=== PATIENT | male | born 1955 | race Caucasian/White ===

== ENCOUNTER 2018-01-09 23:33 | Emergency (ER) | payer BC, SELFPAY ==
[2018-01-10 01:02] LABS: #Eosinphils 0.3 thou/uL (0.0-0.7); #Lymphocytes 1.2 thou/uL (1.20-3.40); #Neutrophils 12.2 thou/uL (1.40-6.50); %Basophils 0.3 % (0.0-1.0); %Eosinophils 2.2 % (0.0-10.0); %Lymphocytes 8.2 % (21.0-51.0); %Monocytes 6.7 % (0.0-10.0); %Neutrophils 82.6 % (42.0-75.0); Hemoglobin 13.4 g/dL (14.0-18.0); Mean Corpuscular HGB CONC 36.9 g/dL (32.0-36.0); Mean Corpuscular Hemoglobin 32.9 pg (27.0-31.0); Mean Corpuscular Volume 89.1 fL (78.0-98.0); Mean Platelet Volume 6.8 fL (7.4-10.4); Platelet Count 223 thou/uL (130-400); RBC Distribution Width 12.2 % (11.5-14.5); Red Blood Cell (RBC) Count 4.07 mill/uL (4.70-6.10); White Blood Cell (WBC) Count 14.7 thou/uL (4.8-10.8)
[2018-01-10 01:13] LABS: ALT (SGPT) 23 U/L (8-55); AST (SGOT) 21 U/L (5-34); Albumin 4.2 g/dL (3.4-4.8); Alkaline Phosphatase 129 U/L (40-150); Anion Gap 17 mmol/L (10-20); BUN (Urea Nitrogen) 18 mg/dL (8.4-25.7); Bilirubin, Total 0.3 mg/dL (0.2-1.2); CK (CPK) 44 U/L (30-200); Calc. Creatinine Clearance 0 mL/min (70-130); Calcium 8.9 mg/dL (7.8-10.44); Carbon Dioxide 20 mmol/L (23-31); Chloride 105 mmol/L (98-107); Estimated GFR-MDRD 65; Globulin 2.7 g/dL (2.4-3.5); Glucose 164 mg/dL (80-115); Potassium 4.1 mmol/L (3.5-5.1); Protein, Total 6.9 g/dL (5.8-8.1); Sodium 138 mmol/L (136-145)
[2018-01-10 01:17] LABS: CKMB 1.1 ng/mL (0-6.6); Troponin I Less than 0.010 ng/mL (< 0.028)
--- NOTE | 2018-01-10 10:05 | RAD ---
CHEST 1 VIEW: HISTORY: A 62-year-old male with history of dyspnea. COMPARISON: 07/21/15. FINDINGS: Heart size is within normal limits. The lungs are clear. No pneumonia, edema, or pleural effusion. IMPRESSION: No acute intrathoracic disease. POS: [facility]
== END 2018-01-10 03:25 | disposition home or self-care (01) ==
LOC: ERS 23:33
DX: R06.02 Shortness of breath (principal); E11.9 Type 2 diabetes mellitus without complications; I10 Essential (primary) hypertension; E78.5 Hyperlipidemia, unspecified; K21.9 Gastro-esophageal reflux disease without esophagitis; F17.220 Nicotine dependence, chewing tobacco, uncomplicated; F41.9 Anxiety disorder, unspecified; Z79.899 Other long term (current) drug therapy; Z79.84 Long term (current) use of oral hypoglycemic drugs
CPT/HCPCS: 36415; 71045; 80053; 82553; 83880; 84484; 85025

== ENCOUNTER 2020-08-14 08:28 | Outpatient (CLI) | payer MEDICARE | END 2020-08-14 08:29 | disposition home or self-care (01) | LOC: BICULT 08:28 | PROVIDERS: ATTEND Internal Medicine Gastroenterology | DX: K21.9 Gastro-esophageal reflux disease without esophagitis (principal); D64.9 Anemia, unspecified; K83.1 Obstruction of bile duct; E66.9 Obesity, unspecified; Z86.010 Personal history of colon polyps; Z80.0 Family history of malignant neoplasm of digestive organs | CPT/HCPCS: 76705 ==

== ENCOUNTER 2020-10-11 11:06 | Outpatient (CLI) | payer MEDICARE | END 2020-10-11 11:07 | disposition home or self-care (01) | LOC: BICRAD 11:06 | PROVIDERS: ATTEND Nurse Practitioner Family | DX: R05 Cough (principal); R91.8 Other nonspecific abnormal finding of lung field | CPT/HCPCS: 71046 ==

== ENCOUNTER 2021-01-19 08:22 | Inpatient (IN) | payer MEDICARE ==
[2021-01-19 09:51] LABS: #Lymphocytes 0.8 thou/uL (1.20-3.40); #Monocytes 0.7 thou/uL (0.11-0.59); #Neutrophils 3.8 thou/uL (1.40-6.50); %Basophils 0.3 % (0.0-1.0); %Eosinophils 0.3 % (0.0-10.0); %Lymphocytes 15.3 % (21.0-51.0); %Monocytes 12.8 % (0.0-10.0); %Neutrophils 71.3 % (42.0-75.0); Hemoglobin 13.3 g/dL (14.0-18.0); Mean Corpuscular HGB CONC 32.8 g/dL (32.0-36.0); Mean Corpuscular Hemoglobin 29.7 pg (27.0-31.0); Mean Corpuscular Volume 90.7 fL (78.0-98.0); Mean Platelet Volume 7.9 fL (7.4-10.4); Platelet Count 155 thou/uL (130-400); RBC Distribution Width 12.9 % (11.5-14.5); Red Blood Cell (RBC) Count 4.47 mill/uL (4.70-6.10); White Blood Cell (WBC) Count 5.3 thou/uL (4.8-10.8)
[2021-01-19 10:08] LABS: ALT (SGPT) 16 U/L (8-55); AST (SGOT) 24 U/L (5-34); Albumin 3.4 g/dL (3.4-4.8); Alkaline Phosphatase 134 U/L (40-110); Anion Gap 14 mmol/L (10-20); BUN (Urea Nitrogen) 21 mg/dL (8.4-25.7); Bilirubin, Total 0.4 mg/dL (0.2-1.2); Calc. Creatinine Clearance 0 mL/min (70-130); Calcium 8.1 mg/dL (7.8-10.44); Carbon Dioxide 22 mmol/L (23-31); Chloride 106 mmol/L (98-107); Globulin 2.7 g/dL (2.4-3.5); Glucose 192 mg/dL (80-115); Potassium 4.9 mmol/L (3.5-5.1); Protein, Total 6.1 g/dL (5.8-8.1); Sodium 137 mmol/L (136-145)
[2021-01-19] MEDS ORDERED: Aspirin 325 MG TAB ONE (10:49)
[2021-01-19] MEDS ORDERED: Diltiazem 125 MG/25 ML ONE (11:46)
[2021-01-19] MEDS ORDERED: Ibuprofen 200 MG TAB PO PRN (12:28)
[2021-01-19] MEDS ORDERED: Ondansetron PF 4 MG/2 ML Vial IVP PRN ×2 (12:29→17:55)
[2021-01-19] MEDS ORDERED: Dextrose 50% Abboject 50 ML SYRINGE IVP PRN (12:30)
[2021-01-19] MEDS ORDERED: Dextrose 5% in Water 1,000 ML IV PRN (12:30)
[2021-01-19 12:43] LABS: SARS-CoV-2 NAA Rapid Test DETECTED (NotDetected)
[2021-01-19] MEDS ORDERED: Diltiazem HCl 125 MG, Admixture Fee 1 EACH in Sodium Chloride 0.9% 100 ML IVPB SCH (12:45)
[2021-01-19] MEDS ORDERED: Acetaminophen 500 MG TAB ONE (13:36)
[2021-01-19] MEDS ORDERED: Iopamidol-370 76% 500 ML 1 ML ONE (15:20)
[2021-01-19] MEDS: Ergocalciferol 1.25 MG(50,000 UNITS) CAP PO SCH (17:35)
[2021-01-19] MEDS: Sodium Chloride 0.9% 1,000 ML IV SCH (17:35)
[2021-01-19] MEDS: Enoxaparin Sodium 100 MG/ML SYRINGE SC SCH (21:48)
[2021-01-19] MEDS: Lisinopril 20 MG TAB PO SCH (21:48)
[2021-01-20] MEDS: traMADol HCl 50 MG TAB PO PRN ×2 (03:06→08:15)
[2021-01-20] MEDS: Sodium Chloride 0.9% 1,000 ML IV SCH ×2 (04:22→08:07)
[2021-01-20 05:36] LABS: #Lymphocytes 0.7 thou/uL (1.20-3.40); #Monocytes 0.6 thou/uL (0.11-0.59); #Neutrophils 2.8 thou/uL (1.40-6.50); %Basophils 0.1 % (0.0-1.0); %Eosinophils 0.6 % (0.0-10.0); %Lymphocytes 17.4 % (21.0-51.0); %Monocytes 14.9 % (0.0-10.0); Hemoglobin 12.5 g/dL (14.0-18.0); Mean Corpuscular HGB CONC 32.1 g/dL (32.0-36.0); Mean Corpuscular Volume 90.4 fL (78.0-98.0); Mean Platelet Volume 7.8 fL (7.4-10.4); Platelet Count 160 thou/uL (130-400); RBC Distribution Width 12.9 % (11.5-14.5); White Blood Cell (WBC) Count 4.2 thou/uL (4.8-10.8)
[2021-01-20 06:02] LABS: Anion Gap 16 mmol/L (10-20); BUN (Urea Nitrogen) 13 mg/dL (8.4-25.7); CRP (Inflammatory) 16.55 mg/dL (= or < 0.5); Calc. Creatinine Clearance 131 mL/min (70-130); Calcium 7.9 mg/dL (7.8-10.44); Carbon Dioxide 18 mmol/L (23-31); Chloride 108 mmol/L (98-107); Glucose 134 mg/dL (80-115); Potassium 4.7 mmol/L (3.5-5.1); Sodium 137 mmol/L (136-145)
[2021-01-20] MEDS: Aspirin 325 MG TAB PO SCH (07:59)
[2021-01-20] MEDS: Lisinopril 20 MG TAB PO SCH ×2 (07:59→20:36)
[2021-01-20] MEDS: Colchicine 0.6 MG TAB PO SCH (07:59)
[2021-01-20] MEDS: Atenolol 50 MG TAB PO SCH (07:59)
[2021-01-20] MEDS: Zinc Sulfate 220 MG CAP PO SCH (07:59)
[2021-01-20] MEDS: Enoxaparin Sodium 100 MG/ML SYRINGE SC SCH ×2 (08:03→20:36)
[2021-01-20] MEDS ORDERED: Dexamethasone 4 mg/ml Vial SLOW IVP SCH (09:00)
[2021-01-20] MEDS ORDERED: CeleCOXIB 100 MG CAP PO SCH (09:30)
[2021-01-20] MEDS ORDERED: Sodium Chloride 0.9% 1,000 ML IV SCH (09:45)
[2021-01-20] MEDS: Cyclobenzaprine 10 MG TAB PO SCH ×3 (09:52→20:36)
[2021-01-20] MEDS: Amlodipine 10 MG TAB PO SCH (09:52)
[2021-01-20] MEDS: Azithromycin 500 MG in Sodium Chloride 0.9% 250 ML 250 ML IVPB SCH (09:57)
[2021-01-20] MEDS ORDERED: FLUoxetine HCl 20 MG CAP PO SCH (10:30)
[2021-01-20] MEDS ORDERED: Diltiazem HCl 125 MG, Admixture Fee 1 EACH in Sodium Chloride 0.9% 100 ML IVPB SCH ×2 (10:45→12:45)
[2021-01-20] MEDS: HYDROcodone/Acetaminophen 5/325 mg Tablet PO PRN ×2 (12:36→17:37)
[2021-01-20] MEDS: methylPREDNISolone Sod Succ 40 MG VIAL IVP SCH ×2 (12:37→17:30)
[2021-01-20] MEDS: Ergocalciferol 1.25 MG(50,000 UNITS) CAP PO SCH (12:37)
[2021-01-20] MEDS: Insulin Regular 300 UNITS/3 ML VIAL SC PRN ×3 (12:42→20:48)
[2021-01-20] MEDS ORDERED: Furosemide 20 MG/2 ML VIAL SLOW IVP SCH (18:30)
[2021-01-20] MEDS ORDERED: Spironolactone 25 MG TAB PO SCH (18:30)
[2021-01-20] MEDS: Atorvastatin Calcium 40 MG TAB PO SCH (20:36)
[2021-01-21] MEDS: methylPREDNISolone Sod Succ 40 MG VIAL IVP SCH ×5 (00:10→23:55)
[2021-01-21 05:47] LABS: #Lymphocytes 0.5 thou/uL (1.20-3.40); #Monocytes 0.3 thou/uL (0.11-0.59); #Neutrophils 3.1 thou/uL (1.40-6.50); %Eosinophils 0.2 % (0.0-10.0); %Lymphocytes 12.9 % (21.0-51.0); %Monocytes 7.2 % (0.0-10.0); %Neutrophils 79.8 % (42.0-75.0); Hemoglobin 12.5 g/dL (14.0-18.0); Mean Corpuscular HGB CONC 35.9 g/dL (32.0-36.0); Mean Corpuscular Hemoglobin 32.5 pg (27.0-31.0); Mean Corpuscular Volume 90.6 fL (78.0-98.0); Mean Platelet Volume 7.6 fL (7.4-10.4); Platelet Count 198 thou/uL (130-400); RBC Distribution Width 12.9 % (11.5-14.5); Red Blood Cell (RBC) Count 3.86 mill/uL (4.70-6.10); White Blood Cell (WBC) Count 3.8 thou/uL (4.8-10.8)
[2021-01-21] MEDS: Insulin Regular 300 UNITS/3 ML VIAL SC PRN ×4 (05:48→21:41)
[2021-01-21 06:06] LABS: Anion Gap 15 mmol/L (10-20); BUN (Urea Nitrogen) 17 mg/dL (8.4-25.7); CRP (Inflammatory) 12.34 mg/dL (= or < 0.5); Calc. Creatinine Clearance 119 mL/min (70-130); Calcium 8.3 mg/dL (7.8-10.44); Carbon Dioxide 23 mmol/L (23-31); Chloride 107 mmol/L (98-107); Glucose 242 mg/dL (80-115); Potassium 4.3 mmol/L (3.5-5.1); Sodium 141 mmol/L (136-145)
[2021-01-21] MEDS: Atenolol 50 MG TAB PO SCH (07:43)
[2021-01-21] MEDS: Colchicine 0.6 MG TAB PO SCH (07:44)
[2021-01-21] MEDS: Spironolactone 25 MG TAB PO SCH (07:44)
[2021-01-21] MEDS: Aspirin 325 MG TAB PO SCH (07:44)
[2021-01-21] MEDS: Cyclobenzaprine 10 MG TAB PO SCH ×3 (07:44→20:20)
[2021-01-21] MEDS: Amlodipine 10 MG TAB PO SCH (07:44)
[2021-01-21] MEDS: Lisinopril 20 MG TAB PO SCH ×2 (07:45→20:20)
[2021-01-21] MEDS: FLUoxetine HCl 20 MG CAP PO SCH (07:45)
[2021-01-21] MEDS: HYDROcodone/Acetaminophen 5/325 mg Tablet PO PRN ×4 (07:45→21:41)
[2021-01-21] MEDS: Zinc Sulfate 220 MG CAP PO SCH (07:45)
[2021-01-21] MEDS: Enoxaparin Sodium 100 MG/ML SYRINGE SC SCH ×2 (07:48→20:20)
[2021-01-21] MEDS ORDERED: CeleCOXIB 100 MG CAP PO SCH (09:00)
[2021-01-21] MEDS: Azithromycin 500 MG in Sodium Chloride 0.9% 250 ML 250 ML IVPB SCH (11:16)
[2021-01-21] MEDS ORDERED: REMDESIVIR 200 MG in Sodium Chloride 0.9% 250 ML 210 ML IV SCH (11:30)
[2021-01-21] MEDS ORDERED: Empagliflozin 10 MG TAB PO SCH (14:30)
[2021-01-21] MEDS: Nicotine 14 MG PATCH TOP SCH (16:00)
[2021-01-21] MEDS: Ergocalciferol 1.25 MG(50,000 UNITS) CAP PO SCH (16:00)
[2021-01-21] MEDS: Atorvastatin Calcium 40 MG TAB PO SCH (20:20)
[2021-01-22 05:32] LABS: #Lymphocytes 0.6 thou/uL (1.20-3.40); #Monocytes 0.7 thou/uL (0.11-0.59); #Neutrophils 10.2 thou/uL (1.40-6.50); %Basophils 0.2 % (0.0-1.0); %Lymphocytes 5.3 % (21.0-51.0); %Monocytes 5.9 % (0.0-10.0); %Neutrophils 88.6 % (42.0-75.0); Hemoglobin 12.3 g/dL (14.0-18.0); Mean Corpuscular HGB CONC 33.8 g/dL (32.0-36.0); Mean Corpuscular Hemoglobin 30.4 pg (27.0-31.0); Mean Corpuscular Volume 89.8 fL (78.0-98.0); Mean Platelet Volume 7.2 fL (7.4-10.4); Platelet Count 240 thou/uL (130-400); RBC Distribution Width 12.9 % (11.5-14.5); Red Blood Cell (RBC) Count 4.04 mill/uL (4.70-6.10); White Blood Cell (WBC) Count 11.6 thou/uL (4.8-10.8)
[2021-01-22 05:58] LABS: Anion Gap 17 mmol/L (10-20); BUN (Urea Nitrogen) 24 mg/dL (8.4-25.7); CRP (Inflammatory) 4.36 mg/dL (= or < 0.5); Calc. Creatinine Clearance 112 mL/min (70-130); Calcium 8.5 mg/dL (7.8-10.44); Carbon Dioxide 25 mmol/L (23-31); Chloride 107 mmol/L (98-107); Glucose 187 mg/dL (80-115); Potassium 4.8 mmol/L (3.5-5.1); Sodium 144 mmol/L (136-145)
[2021-01-22] MEDS: Insulin Regular 300 UNITS/3 ML VIAL SC PRN ×4 (06:05→20:47)
[2021-01-22] MEDS: methylPREDNISolone Sod Succ 40 MG VIAL IVP SCH ×3 (06:08→17:09)
[2021-01-22] MEDS: HYDROcodone/Acetaminophen 5/325 mg Tablet PO PRN ×5 (06:12→22:55)
[2021-01-22] MEDS: REMDESIVIR 100 MG in Sodium Chloride 0.9% 250 ML 230 ML IV SCH (08:52)
[2021-01-22] MEDS: Amlodipine 10 MG TAB PO SCH (08:52)
[2021-01-22] MEDS: Aspirin 325 MG TAB PO SCH (08:52)
[2021-01-22] MEDS: Cyclobenzaprine 10 MG TAB PO SCH ×3 (08:52→20:46)
[2021-01-22] MEDS: Lisinopril 20 MG TAB PO SCH ×2 (08:53→20:46)
[2021-01-22] MEDS: FLUoxetine HCl 20 MG CAP PO SCH (08:53)
[2021-01-22] MEDS: Atenolol 50 MG TAB PO SCH (08:53)
[2021-01-22] MEDS: Zinc Sulfate 220 MG CAP PO SCH (08:53)
[2021-01-22] MEDS: Enoxaparin Sodium 100 MG/ML SYRINGE SC SCH (08:54)
[2021-01-22] MEDS: Spironolactone 25 MG TAB PO SCH (08:54)
[2021-01-22] MEDS: Colchicine 0.6 MG TAB PO SCH (08:54)
[2021-01-22] MEDS: Azithromycin 500 MG in Sodium Chloride 0.9% 250 ML 250 ML IVPB SCH (10:14)
[2021-01-22] MEDS ORDERED: Furosemide 20 MG/2 ML VIAL SLOW IVP SCH (14:30)
[2021-01-22] MEDS: Ergocalciferol 1.25 MG(50,000 UNITS) CAP PO SCH (14:47)
[2021-01-22] MEDS: Nicotine 14 MG PATCH TOP SCH (14:47)
[2021-01-22] MEDS ORDERED: Guaifenesin DM 100-10/5 ML UDCUP PO PRN (16:22)
[2021-01-22] MEDS: Docusate 100 MG CAP PO SCH (20:45)
[2021-01-22] MEDS: Atorvastatin Calcium 40 MG TAB PO SCH (20:46)
[2021-01-22] MEDS: Apixaban 5 MG TAB PO SCH (20:46)
[2021-01-23 06:10] LABS: #Lymphocytes 0.6 thou/uL (1.20-3.40); #Monocytes 1.1 thou/uL (0.11-0.59); #Neutrophils 10.4 thou/uL (1.40-6.50); %Basophils 0.1 % (0.0-1.0); %Eosinophils 0.1 % (0.0-10.0); %Lymphocytes 4.7 % (21.0-51.0); %Monocytes 8.9 % (0.0-10.0); %Neutrophils 86.2 % (42.0-75.0); Hemoglobin 12.2 g/dL (14.0-18.0); Mean Corpuscular HGB CONC 32.3 g/dL (32.0-36.0); Mean Corpuscular Volume 89.8 fL (78.0-98.0); Mean Platelet Volume 6.9 fL (7.4-10.4); Platelet Count 275 thou/uL (130-400); RBC Distribution Width 12.6 % (11.5-14.5); Red Blood Cell (RBC) Count 4.22 mill/uL (4.70-6.10); White Blood Cell (WBC) Count 12.1 thou/uL (4.8-10.8)
[2021-01-23] MEDS: Insulin Regular 300 UNITS/3 ML VIAL SC PRN ×4 (06:17→21:08)
[2021-01-23] MEDS: HYDROcodone/Acetaminophen 5/325 mg Tablet PO PRN ×4 (06:23→19:43)
[2021-01-23 06:34] LABS: ALT (SGPT) 13 U/L (8-55); AST (SGOT) 15 U/L (5-34); Albumin 3.2 g/dL (3.4-4.8); Alkaline Phosphatase 108 U/L (40-110); Anion Gap 15 mmol/L (10-20); BUN (Urea Nitrogen) 31 mg/dL (8.4-25.7); Bilirubin, Total 0.6 mg/dL (0.2-1.2); CRP (Inflammatory) 2.04 mg/dL (= or < 0.5); Calc. Creatinine Clearance 113 mL/min (70-130); Calcium 7.9 mg/dL (7.8-10.44); Carbon Dioxide 25 mmol/L (23-31); Chloride 105 mmol/L (98-107); Globulin 2.6 g/dL (2.4-3.5); Glucose 241 mg/dL (80-115); Protein, Total 5.8 g/dL (5.8-8.1); Sodium 141 mmol/L (136-145)
[2021-01-23] MEDS: Cyclobenzaprine 10 MG TAB PO SCH ×3 (09:38→20:39)
[2021-01-23] MEDS: Aspirin 325 MG TAB PO SCH (09:38)
[2021-01-23] MEDS: FLUoxetine HCl 20 MG CAP PO SCH (09:38)
[2021-01-23] MEDS: Colchicine 0.6 MG TAB PO SCH (09:38)
[2021-01-23] MEDS: Apixaban 5 MG TAB PO SCH ×2 (09:38→20:39)
[2021-01-23] MEDS: Dexamethasone 4 MG TAB PO SCH (09:38)
[2021-01-23] MEDS: Docusate 100 MG CAP PO SCH ×2 (09:38→20:39)
[2021-01-23] MEDS: Zinc Sulfate 220 MG CAP PO SCH (09:39)
[2021-01-23] MEDS: Spironolactone 25 MG TAB PO SCH (09:39)
[2021-01-23] MEDS: Lisinopril 20 MG TAB PO SCH ×2 (09:39→20:39)
[2021-01-23] MEDS: Amlodipine 10 MG TAB PO SCH (09:39)
[2021-01-23] MEDS: REMDESIVIR 100 MG in Sodium Chloride 0.9% 250 ML 230 ML IV SCH (09:40)
[2021-01-23] MEDS: Atenolol 50 MG TAB PO SCH (09:45)
[2021-01-23] MEDS: Empagliflozin 10 MG TAB PO SCH (10:21)
[2021-01-23] MEDS: Azithromycin 500 MG in Sodium Chloride 0.9% 250 ML 250 ML IVPB SCH (11:10)
[2021-01-23] MEDS: Ergocalciferol 1.25 MG(50,000 UNITS) CAP PO SCH (14:33)
[2021-01-23] MEDS: Nicotine 14 MG PATCH TOP SCH (14:33)
[2021-01-23] MEDS: Atorvastatin Calcium 40 MG TAB PO SCH (20:39)
[2021-01-24] MEDS: HYDROcodone/Acetaminophen 5/325 mg Tablet PO PRN ×5 (00:05→16:39)
[2021-01-24 04:33] VITALS: BMI 31.5
[2021-01-24 05:40] LABS: #Lymphocytes 0.8 thou/uL (1.20-3.40); #Monocytes 0.9 thou/uL (0.11-0.59); #Neutrophils 8.7 thou/uL (1.40-6.50); %Basophils 0.1 % (0.0-1.0); %Eosinophils 0.1 % (0.0-10.0); %Lymphocytes 7.5 % (21.0-51.0); %Monocytes 8.7 % (0.0-10.0); %Neutrophils 83.7 % (42.0-75.0); Hemoglobin 12.5 g/dL (14.0-18.0); Mean Corpuscular HGB CONC 33.9 g/dL (32.0-36.0); Mean Corpuscular Hemoglobin 30.6 pg (27.0-31.0); Mean Corpuscular Volume 90.2 fL (78.0-98.0); Mean Platelet Volume 7.2 fL (7.4-10.4); Platelet Count 248 thou/uL (130-400); RBC Distribution Width 12.6 % (11.5-14.5); Red Blood Cell (RBC) Count 4.08 mill/uL (4.70-6.10); White Blood Cell (WBC) Count 10.3 thou/uL (4.8-10.8)
[2021-01-24 06:12] LABS: Anion Gap 11 mmol/L (10-20); BUN (Urea Nitrogen) 26 mg/dL (8.4-25.7); CRP (Inflammatory) 1.12 mg/dL (= or < 0.5); Calc. Creatinine Clearance 122 mL/min (70-130); Calcium 8.1 mg/dL (7.8-10.44); Carbon Dioxide 29 mmol/L (23-31); Chloride 102 mmol/L (98-107); Glucose 161 mg/dL (80-115); Potassium 3.8 mmol/L (3.5-5.1); Sodium 138 mmol/L (136-145)
[2021-01-24] MEDS: REMDESIVIR 100 MG in Sodium Chloride 0.9% 250 ML 230 ML IV SCH (08:39)
[2021-01-24] MEDS: Docusate 100 MG CAP PO SCH (08:40)
[2021-01-24] MEDS: Colchicine 0.6 MG TAB PO SCH (08:40)
[2021-01-24] MEDS: FLUoxetine HCl 20 MG CAP PO SCH (08:40)
[2021-01-24] MEDS: Aspirin 325 MG TAB PO SCH (08:40)
[2021-01-24] MEDS: Amlodipine 10 MG TAB PO SCH (08:40)
[2021-01-24] MEDS: Apixaban 5 MG TAB PO SCH (08:41)
[2021-01-24] MEDS: Atenolol 50 MG TAB PO SCH (08:41)
[2021-01-24] MEDS: Empagliflozin 10 MG TAB PO SCH (08:41)
[2021-01-24] MEDS: Cyclobenzaprine 10 MG TAB PO SCH ×2 (08:41→14:13)
[2021-01-24] MEDS: Spironolactone 25 MG TAB PO SCH (08:41)
[2021-01-24] MEDS: Zinc Sulfate 220 MG CAP PO SCH (08:41)
[2021-01-24] MEDS: Dexamethasone 4 MG TAB PO SCH (08:41)
[2021-01-24] MEDS: Lisinopril 20 MG TAB PO SCH (08:41)
[2021-01-24] MEDS: Azithromycin 500 MG in Sodium Chloride 0.9% 250 ML 250 ML IVPB SCH (09:53)
[2021-01-24 11:44] VITALS: BP 138/75; TEMP 97.6
[2021-01-24] MEDS: Insulin Regular 300 UNITS/3 ML VIAL SC PRN (12:59)
[2021-01-24] MEDS: Nicotine 14 MG PATCH TOP SCH (14:13)
[2021-01-25] MEDS ORDERED: Spironolactone 25 MG TAB PO SCH ×2 (08:00)
== END 2021-01-24 16:55 | disposition home or self-care (01) | DRG 177 ==
LOC: ERS 08:22 → 2SE 11:44
PROVIDERS: ADMIT Specialist; ATTEND Specialist
PROC: 8E0ZXY6 Isolation (ICD-10-PCS; principal; 2021-01-19)
PROC: 3E0333Z Introduction of Anti-inflammatory into Peripheral Vein, Percutaneous Approach (ICD-10-PCS; 2021-01-20)
PROC: XW033E5 Introduction of Remdesivir Anti-infective into Peripheral Vein, Percutaneous Approach, New Technology Group 5 (ICD-10-PCS; 2021-01-21)
DX: U07.1 COVID-19 (principal); J12.82 Pneumonia due to coronavirus disease 2019; I50.31 Acute diastolic (congestive) heart failure; E11.9 Type 2 diabetes mellitus without complications; K21.9 Gastro-esophageal reflux disease without esophagitis; E78.00 Pure hypercholesterolemia, unspecified; F41.9 Anxiety disorder, unspecified; G47.33 Obstructive sleep apnea (adult) (pediatric); I25.10 Atherosclerotic heart disease of native coronary artery without angina pectoris; I48.0 Paroxysmal atrial fibrillation; I11.0 Hypertensive heart disease with heart failure; E78.2 Mixed hyperlipidemia; Z88.5 Allergy status to narcotic agent; Z88.1 Allergy status to other antibiotic agents; Z79.84 Long term (current) use of oral hypoglycemic drugs; Z79.899 Other long term (current) drug therapy; Z87.891 Personal history of nicotine dependence
CPT/HCPCS: 0240U; 36415; 36416; 71045; 71275; 80048; 80053; 83605; 83880; 84484; 85025; 85379; 85652; 86140; 93005; 93306; 93798; 96365; 96366; 96376; J0456; J1100; J1650; J1815; J1940; J2920; J3490; J7050; J8540; Q9967

== ENCOUNTER 2021-04-04 15:01 | Outpatient (CLI) | payer MEDICARE | END 2021-04-04 15:02 | disposition home or self-care (01) | LOC: BICRAD 15:01 | PROVIDERS: ATTEND Nurse Practitioner Family | DX: M54.2 Cervicalgia (principal); M54.9 Dorsalgia, unspecified; M47.812 Spondylosis without myelopathy or radiculopathy, cervical region | CPT/HCPCS: 72040 ==

== ENCOUNTER 2021-08-06 06:49 | Day surgery (SDC) | payer MEDICARE ==
[2021-08-01 11:11] VITALS: BMI 32.5
[2021-08-06] MEDS ORDERED: Fentanyl 250 MCG/5 ML VIAL ONE (10:05)
[2021-08-06] MEDS ORDERED: Levofloxacin 500 mg/D5W 100 ml Premix Bag ONE (10:08)
[2021-08-06] MEDS ORDERED: Dexamethasone 20 MG/5 ML VIAL ONE (10:12)
[2021-08-06] MEDS ORDERED: Ondansetron PF 4 MG/2 ML Vial ONE (10:12)
[2021-08-06] MEDS ORDERED: Lidocaine 1% PF 5 ML VIAL ONE (10:12)
[2021-08-06] MEDS ORDERED: PROPOFOL 200 MG/20 ML VIAL ONE (10:12)
[2021-08-06] MEDS ORDERED: Phenazopyridine HCl 100 MG TAB ONE ×2 (11:02→11:09)
[2021-08-06] MEDS ORDERED: Oxybutynin 5 MG TAB ONE (11:02)
[2021-08-06] MEDS ORDERED: Ketorolac Tromethamine 30 MG/ML VIAL ONE (11:03)
== END 2021-08-06 12:10 | disposition home or self-care (01) ==
LOC: SDC 06:49
PROVIDERS: ATTEND Urology
PROC: 0TBB8ZX Excision of Bladder, Via Natural or Artificial Opening Endoscopic, Diagnostic (ICD-10-PCS; principal; 2021-08-06)
DX: C67.2 Malignant neoplasm of lateral wall of bladder (principal); I48.91 Unspecified atrial fibrillation; M19.90 Unspecified osteoarthritis, unspecified site; E11.9 Type 2 diabetes mellitus without complications; I10 Essential (primary) hypertension; Z86.16 Personal history of COVID-19; Z79.01 Long term (current) use of anticoagulants; Z79.84 Long term (current) use of oral hypoglycemic drugs; Z79.899 Other long term (current) drug therapy; Z88.0 Allergy status to penicillin; Z88.5 Allergy status to narcotic agent
CPT/HCPCS: 88307; J1100; J1885; J1956; J2405; J2704; J3010

== ENCOUNTER 2022-02-28 07:58 | Outpatient (CLI) | payer MEDICARE ==
[2022-02-28 08:53] LABS: Bilirubin Neg (Negative); Blood, Urine 25 (Negative); Clarity Clear (Clear); Glucose, Urine (Dipstick) 50 mg/dL (Negative); Ketone, Urine Negative (Negative); Leukocyte Negative (Negative); Nitrite Negative (Negative); Protein, Urine (Dipstick) 30 mg/dl (Neg-Trace); Urobilinogen Normal mg/dL (Less than 2)
[2022-02-28 08:59] LABS: Hemoglobin 13.5 g/dL (13.5-17.5); Mean Corpuscular HGB CONC 33.9 g/dL (32.0-36.0); Mean Corpuscular Hemoglobin 29.3 pg (27.0-33.0); Mean Corpuscular Volume 86.3 fl (81.2-95.1); Mean Platelet Volume 10.1 fl (7.4-10.4); Platelet Count 234 10x3/uL (150-450); RBC Distribution Width 13.2 % (11.5-14.5); Red Blood Cell (RBC) Count 4.61 10x6/uL (4.32-5.72); White Blood Cell (WBC) Count 10.9 10x3/uL (3.5-10.5)
[2022-02-28 09:03] LABS: RBC/HPF 0-3 HPF (0-3); WBC/HPF 0-3 HPF (0-3)
[2022-02-28 09:04] LABS: Bacteria/HPF None Seen HPF (None Seen); Squamous Epithelial 0-3 HPF (0-3)
[2022-02-28 09:09] LABS: PTT 26.2 sec (22.0-33.0); Prothrombin Time 10.5 sec (9.5-12.1)
[2022-02-28 09:24] LABS: Anion Gap 14 mmol/L (10-20); BUN (Urea Nitrogen) 19 mg/dL (8.4-25.7); Calc. Creatinine Clearance 0 mL/min (70-130); Calcium 9.3 mg/dL (7.8-10.44); Carbon Dioxide 26 mmol/L (23-31); Chloride 106 mmol/L (98-107); Estimated GFR 82; Glucose 227 mg/dL (80-115); Potassium 4.5 mmol/L (3.5-5.1); Sodium 141 mmol/L (136-145)
== END 2022-02-28 07:59 | disposition home or self-care (01) ==
LOC: LABBT 07:58
PROVIDERS: ATTEND Urology
DX: Z01.812 Encounter for preprocedural laboratory examination (principal); Z12.5 Encounter for screening for malignant neoplasm of prostate; C67.2 Malignant neoplasm of lateral wall of bladder; N40.1 Benign prostatic hyperplasia with lower urinary tract symptoms; I48.91 Unspecified atrial fibrillation; E11.9 Type 2 diabetes mellitus without complications; R35.0 Frequency of micturition; R81 Glycosuria; Z87.440 Personal history of urinary (tract) infections
CPT/HCPCS: 80048; 81001; 85027; 85610; 85730; 86850; 86900; 86901; 87086

== ENCOUNTER 2022-03-05 06:15 | Day surgery (SDC) | payer MEDICARE ==
[2022-02-28 08:53] LABS: Bilirubin Neg (Negative); Blood, Urine 25 (Negative); Clarity Clear (Clear); Glucose, Urine (Dipstick) 50 mg/dL (Negative); Ketone, Urine Negative (Negative); Leukocyte Negative (Negative); Nitrite Negative (Negative); Protein, Urine (Dipstick) 30 mg/dl (Neg-Trace); Urobilinogen Normal mg/dL (Less than 2)
[2022-02-28 08:59] LABS: Hemoglobin 13.5 g/dL (13.5-17.5); Mean Corpuscular HGB CONC 33.9 g/dL (32.0-36.0); Mean Corpuscular Hemoglobin 29.3 pg (27.0-33.0); Mean Corpuscular Volume 86.3 fl (81.2-95.1); Mean Platelet Volume 10.1 fl (7.4-10.4); Platelet Count 234 10x3/uL (150-450); RBC Distribution Width 13.2 % (11.5-14.5); Red Blood Cell (RBC) Count 4.61 10x6/uL (4.32-5.72); White Blood Cell (WBC) Count 10.9 10x3/uL (3.5-10.5)
[2022-02-28 09:03] LABS: RBC/HPF 0-3 HPF (0-3); WBC/HPF 0-3 HPF (0-3)
[2022-02-28 09:04] LABS: Bacteria/HPF None Seen HPF (None Seen); Squamous Epithelial 0-3 HPF (0-3)
[2022-02-28 09:09] LABS: PTT 26.2 sec (22.0-33.0); Prothrombin Time 10.5 sec (9.5-12.1)
[2022-02-28 09:24] LABS: Anion Gap 14 mmol/L (10-20); BUN (Urea Nitrogen) 19 mg/dL (8.4-25.7); Calc. Creatinine Clearance 0 mL/min (70-130); Calcium 9.3 mg/dL (7.8-10.44); Carbon Dioxide 26 mmol/L (23-31); Chloride 106 mmol/L (98-107); Estimated GFR 82; Glucose 227 mg/dL (80-115); Potassium 4.5 mmol/L (3.5-5.1); Sodium 141 mmol/L (136-145)
[2022-03-03 15:34] VITALS: BMI 32.5
[~2022-03-05 06:15] MED LIST: mitoMYcin 40 MG in Sodium Chloride 0.9% 40 ML I-VESIC SCH
[2022-03-05] MEDS ORDERED: fentaNYL PF 100 MCG/2 ML SYRINGE ONE (08:10)
[2022-03-05] MEDS ORDERED: SUGAMMADEX SODIUM 200 MG/2 ML VIAL ONE (08:11)
[2022-03-05] MEDS ORDERED: Ondansetron PF 4 MG/2 ML Vial ONE ×2 (08:11→08:22)
[2022-03-05] MEDS ORDERED: Famotidine/PF 20 mg/2ml Vial ONE (08:11)
[2022-03-05] MEDS ORDERED: ePHEDrine Sulfate 50 MG/10 ML VIAL ONE (08:11)
[2022-03-05] MEDS ORDERED: Metoclopramide HCl 10 MG/2 ML VIAL ONE ×2 (08:11→08:22)
[2022-03-05] MEDS ORDERED: Levofloxacin 500 mg/D5W 100 ml Premix Bag ONE (08:14)
[2022-03-05] MEDS ORDERED: PROPOFOL 200 MG/20 ML VIAL ONE (08:22)
[2022-03-05] MEDS ORDERED: ePHEDrine 50 MG/ML VIAL ONE (08:22)
[2022-03-05] MEDS ORDERED: Rocuronium Bromide 10 MG/ML (10ML VIAL) ONE (08:22)
[2022-03-05] MEDS ORDERED: Phenazopyridine HCl 100 MG TAB ONE (09:26)
[2022-03-05] MEDS ORDERED: Oxybutynin 5 MG TAB ONE (09:26)
== END 2022-03-05 13:02 | disposition home or self-care (01) ==
LOC: SDC 06:15
PROVIDERS: ATTEND Urology
PROC: 0TBB8ZX Excision of Bladder, Via Natural or Artificial Opening Endoscopic, Diagnostic (ICD-10-PCS; principal; 2022-03-05)
PROC: 3E0K705 Introduction of Other Antineoplastic into Genitourinary Tract, Via Natural or Artificial Opening (ICD-10-PCS; 2022-03-05)
DX: C67.3 Malignant neoplasm of anterior wall of bladder (principal); N40.1 Benign prostatic hyperplasia with lower urinary tract symptoms; R35.0 Frequency of micturition; N13.8 Other obstructive and reflux uropathy; E11.9 Type 2 diabetes mellitus without complications; M19.90 Unspecified osteoarthritis, unspecified site; I10 Essential (primary) hypertension; I25.10 Atherosclerotic heart disease of native coronary artery without angina pectoris; I48.0 Paroxysmal atrial fibrillation; Z86.16 Personal history of COVID-19; Z87.440 Personal history of urinary (tract) infections; Z79.01 Long term (current) use of anticoagulants; Z79.84 Long term (current) use of oral hypoglycemic drugs; Z79.899 Other long term (current) drug therapy; Z88.0 Allergy status to penicillin; Z88.5 Allergy status to narcotic agent
CPT/HCPCS: 51720; 52234; 80048; 81001; 85027; 85610; 85730; 86850; 86900; 86901; 87086; J9280; 88305; 88342; J1956; J2405; J2704; J2765; J3490; S0028

== ENCOUNTER 2022-04-03 10:15 | Outpatient (CLI) | payer MEDICARE | END 2022-04-03 10:16 | disposition home or self-care (01) | LOC: PET 10:15 | PROVIDERS: ATTEND Urology | DX: C67.2 Malignant neoplasm of lateral wall of bladder (principal) | CPT/HCPCS: 78815; A9552 ==

== ENCOUNTER 2022-05-07 08:01 | Day surgery (SDC) | payer MEDICARE ==
[2022-05-06 09:36] VITALS: BMI 32.4
[2022-05-07] MEDS ORDERED: mitoMYcin 40 MG in Sodium Chloride 0.9% 40 ML FS SCH (11:15)
[2022-05-07] MEDS ORDERED: mitoMYcin 40 MG in Sodium Chloride 0.9% 40 ML I-VESIC SCH (11:30)
[2022-05-07] MEDS ORDERED: Fentanyl 100 MCG/2 ML VIAL ONE (11:45)
[2022-05-07] MEDS ORDERED: Levofloxacin 500 mg/D5W 100 ml Premix Bag ONE (11:54)
[2022-05-07] MEDS ORDERED: Rocuronium Bromide 10 MG/ML (10ML VIAL) ONE (12:01)
[2022-05-07] MEDS ORDERED: PROPOFOL 200 MG/20 ML VIAL ONE (12:01)
[2022-05-07] MEDS ORDERED: Glycopyrrolate 0.2 MG/ML 5 ML SYRINGE ONE (12:01)
[2022-05-07] MEDS ORDERED: NEOSTIGMINE 3 MG/3 ML SYR 3 MG/3 ML SYRINGE ONE (12:01)
[2022-05-07] MEDS ORDERED: Lidocaine 1% PF 5 ML VIAL ONE (12:01)
[2022-05-07] MEDS ORDERED: PHENYLEPHRINE-NS 100 MCG/ML 10 ML SYRINGE ONE (12:01)
[2022-05-07] MEDS ORDERED: SUGAMMADEX SODIUM 200 MG/2 ML VIAL ONE (12:30)
[2022-05-07] MEDS ORDERED: Labetalol HCl 100 MG/20 ML VIAL ONE (12:46)
[2022-05-07] MEDS ORDERED: Oxybutynin 5 MG TAB ONE (12:56)
[2022-05-07] MEDS ORDERED: Phenazopyridine HCl 100 MG TAB ONE (12:56)
[2022-05-07] MEDS ORDERED: HYDROcodone/Acetaminophen 5/325 mg Tablet ONE (15:07)
== END 2022-05-07 15:47 | disposition home or self-care (01) ==
LOC: SDC 08:01
PROVIDERS: ATTEND Urology
PROC: 3E0K805 Introduction of Other Antineoplastic into Genitourinary Tract, Via Natural or Artificial Opening Endoscopic (ICD-10-PCS; principal; 2022-05-07)
DX: C67.2 Malignant neoplasm of lateral wall of bladder (principal); N40.1 Benign prostatic hyperplasia with lower urinary tract symptoms; R35.0 Frequency of micturition; M19.90 Unspecified osteoarthritis, unspecified site; E11.9 Type 2 diabetes mellitus without complications; I10 Essential (primary) hypertension; I25.10 Atherosclerotic heart disease of native coronary artery without angina pectoris; I48.0 Paroxysmal atrial fibrillation; R91.1 Solitary pulmonary nodule; K40.20 Bilateral inguinal hernia, without obstruction or gangrene, not specified as recurrent; Z86.16 Personal history of COVID-19; Z87.440 Personal history of urinary (tract) infections; Z79.01 Long term (current) use of anticoagulants; Z79.84 Long term (current) use of oral hypoglycemic drugs; Z79.899 Other long term (current) drug therapy; Z88.0 Allergy status to penicillin; Z88.5 Allergy status to narcotic agent
CPT/HCPCS: 51720; 86850; 86900; 86901; J9280; 36415; J1956; J2704; J3010

== ENCOUNTER 2022-08-29 08:55 | Outpatient (CLI) | payer MEDICARE | END 2022-08-29 08:56 | disposition home or self-care (01) | LOC: TBSIIMAG 08:55 | PROVIDERS: ATTEND Family Medicine | DX: G89.4 Chronic pain syndrome (principal); M47.812 Spondylosis without myelopathy or radiculopathy, cervical region; M47.813 Spondylosis without myelopathy or radiculopathy, cervicothoracic region; M50.31 Other cervical disc degeneration, high cervical region; M48.02 Spinal stenosis, cervical region; M25.78 Osteophyte, vertebrae; M50.321 Other cervical disc degeneration at C4-C5 level; M50.323 Other cervical disc degeneration at C6-C7 level | CPT/HCPCS: 72141 ==

== ENCOUNTER 2023-02-17 07:52 | Outpatient (CLI) | payer MEDICARE ==
[2023-02-17] MEDS ORDERED: Iopamidol 370 76% 100 ML VIAL ONE (09:19)
== END 2023-02-17 07:53 | disposition home or self-care (01) ==
LOC: BICCT 07:52
PROVIDERS: ATTEND Urology
DX: C67.2 Malignant neoplasm of lateral wall of bladder (principal)
CPT/HCPCS: 74178; 81001; 87086

== ENCOUNTER 2024-02-01 07:27 | Outpatient (CLI) | payer MEDICARE ==
[2024-02-01] MEDS ORDERED: Iopamidol 370 76% 100 ML VIAL ONE (14:59)
== END 2024-02-01 07:28 | disposition home or self-care (01) ==
LOC: CT 07:27
PROVIDERS: ATTEND Urology
DX: C67.2 Malignant neoplasm of lateral wall of bladder (principal); N32.89 Other specified disorders of bladder; K63.89 Other specified diseases of intestine; K59.00 Constipation, unspecified; N28.89 Other specified disorders of kidney and ureter
CPT/HCPCS: 74178; Q9967

== ENCOUNTER 2024-06-27 13:05 | Outpatient (CLI) | payer MEDICARE | END 2024-06-27 13:06 | disposition home or self-care (01) | LOC: RAD 13:05 | PROVIDERS: ATTEND Internal Medicine Critical Care Medicine | DX: R06.00 Dyspnea, unspecified (principal) | CPT/HCPCS: 71046 ==

== ENCOUNTER 2025-01-07 09:23 | Outpatient (CLI) | payer MEDICARE | END 2025-01-07 09:24 | disposition home or self-care (01) | LOC: ULT 09:23 | PROVIDERS: ATTEND Family Medicine | DX: R74.8 Abnormal levels of other serum enzymes (principal) | CPT/HCPCS: 76705 ==

== ENCOUNTER 2025-01-31 08:31 | Outpatient (CLI) | payer MEDICARE ==
[2025-01-31] MEDS ORDERED: Iopamidol 370 76% 100 ML VIAL ONE (13:13)
== END 2025-01-31 08:32 | disposition home or self-care (01) ==
LOC: CT 08:31
PROVIDERS: ATTEND Urology
DX: C67.2 Malignant neoplasm of lateral wall of bladder (principal); N32.89 Other specified disorders of bladder; K40.20 Bilateral inguinal hernia, without obstruction or gangrene, not specified as recurrent
CPT/HCPCS: 36000; 74178